=== PATIENT | female | born 1965 | race Two or more races ===

== ENCOUNTER 2021-09-25 12:22 | Emergency (ER) | payer BC, MEDICAID ==
[~2021-09-25] VITALS: Ht 162.6 cm; Wt 89.8 kg
[2021-09-25 12:25] VITALS: BP 158/79
== END 2021-09-25 12:57 | disposition left against medical advice (07) ==
LOC: ER 12:22
DX: I10 Essential (primary) hypertension (principal); Z53.21 Procedure and treatment not carried out due to patient leaving prior to being seen by health care provider

== ENCOUNTER 2022-03-26 14:01 | Emergency (ER) | payer BC, MEDICAID ==
[~2022-03-26] VITALS: Ht 162.6 cm; Wt 92.0 kg
[2022-03-26 15:11] LABS: Basophils # (auto) 0.1 10 ^3/uL (0-0.2); Basophils % (auto) 0.9 % (0.0-2.0); Eosinophils # (auto) 0.1 10 ^3/uL (0-0.8); Eosinophils % (auto) 0.7 % (0.0-7.0); Hematocrit 45.4 % (36.0-46.0); Hemoglobin 15.4 g/dL (12.2-16.2); Lymphocytes # (auto) 2.5 10 ^3/uL (0.4-5.4); Mean Corpuscular Hemoglobin 29.7 pg (28.0-32.0); Mean Corpuscular Hgb Conc. 33.9 g/dL (32.0-36.0); Mean Corpuscular Volume 87.6 fL (80.0-100.0); Monocytes # (auto) 0.4 10 ^3/uL (0-1.3); Monocytes % (auto) 4.6 % (0.0-12.0); Neutrophils # (auto) 5.9 10 ^3/uL (1.6-8.6); Neutrophils % (auto) 65.8 % (37.0-80.0); Nucleated Red Blood Cells % 0.1 %; Red Blood Cells 5.18 10^6/uL (4.0-5.20); Red Cell Distribution Width 14.4 % (11.8-14.3)
[2022-03-26 15:11] LABS: Urine Blood Negative /uL (Negative); Urine Specific Gravity 1.026 (1.001-1.035)
[2022-03-26] MEDS ORDERED: cloNIDine HCL 0.1 MG TAB PO ONE (15:15)
[2022-03-26 15:18] LABS: Albumin 4.2 g/dL (3.4-5.0); Calcium 9.6 mg/dL (8.5-10.1)
[2022-03-26 15:19] LABS: Urine Bacteria None Seen /hpf (None Seen)
[2022-03-26 15:23] LABS: BUN/Creatinine Ratio 18.9; Bilirubin, Total 0.7 mg/dL (0.2-1.0); Total Protein 8.2 g/dL (6.4-8.2)
[2022-03-26] MEDS ORDERED: NITR50CA24 PO (17:43)
[2022-03-26 18:03] LABS: Urine WBC 0-4 /hpf (0 - 5); Urine WBC Clumps None Seen /hpf (None Seen)
[2022-03-26 18:04] LABS: Urine Ca Carbonate Crystal None Seen /hpf (None Seen)
[2022-03-26 18:05] LABS: Urine Amorphous Sediment None Seen /hpf; Urine Fine Granular Cast None Seen /lpf; Urine Hyaline Cast None Seen /lpf (0 - 2)
[2022-03-26 18:06] LABS: Urine Amorphous Crystal None Seen /hpf (None Seen); Urine Budding Yeast Few /hpf (None Seen); Urine Mucus None Seen (None Seen); Urine Sperm None Seen /hpf (None Seen)
[2022-03-26 18:21] VITALS: BP 146/77
== END 2022-03-26 18:22 | disposition home or self-care (01) ==
LOC: ER 14:01
DX: R07.89 Other chest pain (principal); I16.0 Hypertensive urgency; N39.0 Urinary tract infection, site not specified; Z88.0 Allergy status to penicillin
CPT/HCPCS: 36415; 71046; 74176; 80053; 81003; 81015; 82150; 83690; 85025; 93005

== ENCOUNTER → 2022-04-17 | Outpatient (CLI) | payer BC, MEDICAID ==
[~2022-04-17] MED LIST: NITR50CA24 PO
[2022-04-17 08:00] LABS: Cholesterol 251 mg/dL (< 200); HDL Cholesterol 37 mg/dL (40-59); LDL Cholesterol 201 mg/dL (< 100); Triglycerides 142 mg/dL (< 150)
[2022-04-17 08:09] LABS: Free T3 3.45 pg/mL (2.3-4.2); Free T4 (Free Thyroxine) 0.94 ng/dL (0.89-1.76)
== END | disposition home or self-care (01) ==
LOC: LAB 06:50
PROVIDERS: ATTEND Internal Medicine
DX: I10 Essential (primary) hypertension (principal); E66.9 Obesity, unspecified; R73.01 Impaired fasting glucose
CPT/HCPCS: 36415; 80061; 83036; 84439; 84443; 84481

== ENCOUNTER → 2022-04-21 | Outpatient (CLI) | payer BC, MEDICAID ==
[2022-04-21 07:40] LABS: Calcium 9.5 mg/dL (8.5-10.1); Potassium 3.8 mmol/L (3.5-5.1)
[2022-04-21 07:53] LABS: BUN/Creatinine Ratio 17.7
== END | disposition home or self-care (01) ==
LOC: LAB 06:40
PROVIDERS: ATTEND Internal Medicine
DX: I10 Essential (primary) hypertension (principal)
CPT/HCPCS: 36415; 80048; 82274

== ENCOUNTER → 2022-11-04 | Outpatient (CLI) | payer BC, MEDICAID ==
[2022-11-04 07:36] LABS: Urine Bacteria FEW /hpf (None Seen); Urine Blood Negative /uL (Negative); Urine Mucus FEW (None Seen); Urine Specific Gravity 1.023 (1.001-1.035); Urine WBC 3 /hpf (0 - 5)
[2022-11-04 07:54] LABS: Albumin 3.6 g/dL (3.4-5.0); Calcium 9.3 mg/dL (8.5-10.1); Potassium 4.3 mmol/L (3.5-5.1)
[2022-11-04 07:59] LABS: BUN/Creatinine Ratio 22.1 (10.0-20.0); Bilirubin, Total 0.3 mg/dL (0.2-1.0); Total Protein 7.6 g/dL (6.4-8.2)
[2022-11-04 08:25] LABS: Micro Albumin 37.2 mg/L (0-30.0)
== END | disposition home or self-care (01) ==
LOC: LAB 06:50
PROVIDERS: ATTEND Internal Medicine
DX: E11.69 Type 2 diabetes mellitus with other specified complication (principal); I10 Essential (primary) hypertension; E78.5 Hyperlipidemia, unspecified
CPT/HCPCS: 36415; 80053; 80061; 81001; 82043; 82570; 83036